=== PATIENT | female | born 1980 | race Caucasian/White ===

== ENCOUNTER 2018-05-25 08:26 | Day surgery (SDC) | payer OTHER ==
[2018-05-19 17:06] VITALS: BMI 28.4
[2018-05-25] MEDS ORDERED: PROPOFOL 20 ML ONE ×2 (09:27→09:32)
[2018-05-25] MEDS ORDERED: MIDAZOLAM HCL 2 MG/2 ML SINGLE DOSE VIAL ONE (09:27)
[2018-05-25] MEDS ORDERED: DEXAMETHASONE SOD PHOSPHATE 4 MG/1 ML VIAL ONE (09:28)
[2018-05-25] MEDS ORDERED: ONDANSETRON 4 MG/2 ML VIAL ONE (09:28)
[2018-05-25] MEDS ORDERED: ceFAZolin SODIUM 1 GM VIAL ONE (09:36)
[2018-05-25] MEDS ORDERED: DESFLURANE GAS 240 ML BOTTLE IH ONE (09:46)
[2018-05-25] MEDS ORDERED: GUM MASTIC/STORAX/MSAL/ALCOHOL 1 DRP DROPSBTL MC ONE (10:01)
[2018-05-25] MEDS ORDERED: ONDANSETRON 4 MG/2 ML VIAL IVPUSH PRN (10:08)
[2018-05-25] MEDS ORDERED: oxyCODONE HCL 5 MG TABLET PO PRN ×2 (10:08)
[2018-05-25] MEDS ORDERED: PROMETHAZINE HCL 25 MG/1 ML VIAL IVPUSH PRN (10:08)
[2018-05-25] MEDS ORDERED: BUPIVACAINE HCL/PF 0.25% (2.5MG/ML) 10 ML VIAL IJ ONE (10:28)
[2018-05-25 12:59] VITALS: TEMP 98.2
[2018-05-25 13:47] VITALS: BP 116/72; PULSE 78
--- NOTE | 2018-05-26 09:44 | OP ---
DATE OF OPERATION: 05/25/2018 PREOPERATIVE DIAGNOSIS: Left ulnar neuropathy at elbow. POSTOPERATIVE DIAGNOSIS: Left ulnar neuropathy at elbow. OPERATIVE PROCEDURE: Left ulnar nerve decompression at elbow with subcutaneous transposition. SURGEON: Miguel Fried MD [employer]ER: LILO Chiang ANESTHESIA: General. COMPLICATIONS: None. ESTIMATED BLOOD LOSS: Minimal. INDICATION FOR PROCEDURE: The patient is a 37-year-old female with the above finding, indicated for operative treatment. Risks, benefits, and alternatives were discussed with the patient at length. Proper informed consent was obtained. PROCEDURE: After proper identification of the patient and correct operative site, patient was brought to the operating room, placed supine on the OR table. All prominences were well padded. General anesthesia was given. Left upper extremity was prepped and draped in usual sterile fashion. A well-padded tourniquet was placed as well as a sterile prep. Esmarch bandage was used to exsanguinate the left upper extremity. Tourniquet was inflated to 250 mmHg. Curvilinear incision was made over the posterior medial aspect of the elbow. Incision was taken sharply through the skin, and blunt and sharp dissection through the subcutaneous tissues. Crossing neurovascular structures were carefully protected. Ulnar nerve was decompressed from the medial intermuscular septum to the insertion of the flexor carpi ulnaris split. This provided complete release of the ulnar nerve at the elbow. The ulnar nerve looked normal in appearance. However, with motion, it was clearly subluxing. Therefore, a transposition was performed by elevating the tissue over the flexor pronator wad and transposing the nerve into this area and then creating a lipofascial sling which kept the nerve anterior to the medial epicondyle. Elbow was taken through a range of motion. There was no evidence of any compression. A small section of the medial intermuscular septum had been resected previously. There was nice nerve gliding with motion, and there were no areas of further compression. Wound was irrigated with saline and repaired in layers using 4-0 Vicryl and 4-0 Monocryl suture. Steri-Strips, sterile dressings were placed. Patient was reversed from anesthesia and brought to Recovery in stable condition. She tolerated the procedure well. Asha THOMSON/[id number]
== END 2018-05-25 13:53 | disposition home or self-care (01) ==
LOC: FASU 08:26
PROVIDERS: ATTEND Orthopaedic Surgery Hand Surgery
PROC: 01N40ZZ Release Ulnar Nerve, Open Approach (ICD-10-PCS; principal; 2018-05-25 10:00)
DX: G56.22 Lesion of ulnar nerve, left upper limb (principal)
CPT/HCPCS: 84703; 94760

== ENCOUNTER 2019-05-10 09:47 | Day surgery (SDC) | payer OTHER ==
[2019-05-09 12:17] VITALS: BMI 28.9
[2019-05-10] MEDS ORDERED: BUPIVACAINE HCL/PF 0.5% (5MG/ML) 10 ML VIAL ONE (11:00)
[2019-05-10] MEDS ORDERED: MIDAZOLAM HCL 2 MG/2 ML SINGLE DOSE VIAL ONE ×2 (12:01→12:31)
[2019-05-10] MEDS ORDERED: ROPIVACAINE HCL 0.5% 30ML VIAL ONE (12:02)
[2019-05-10] MEDS ORDERED: DEXAMETHASONE SOD PHOSPHATE/PF 10 MG/ML SDV ONE (12:02)
[2019-05-10] MEDS ORDERED: PROPOFOL 20 ML ONE (12:31)
[2019-05-10] MEDS ORDERED: DEXAMETHASONE SOD PHOSPHATE 4 MG/1 ML VIAL ONE (12:31)
[2019-05-10] MEDS ORDERED: ONDANSETRON 4 MG/2 ML VIAL ONE (12:31)
[2019-05-10] MEDS ORDERED: ceFAZolin SODIUM 1 GM VIAL ONE (12:42)
[2019-05-10] MEDS ORDERED: BUPIVACAINE HCL/PF 0.5% (5MG/ML) 10 ML VIAL IJ ONE (12:55)
[2019-05-10 14:19] VITALS: TEMP 98.4
[2019-05-10] MEDS ORDERED: ONDANSETRON 4 MG/2 ML VIAL IVPUSH PRN (14:19)
[2019-05-10] MEDS ORDERED: oxyCODONE HCL 5 MG TABLET PO PRN (14:19)
[2019-05-10] MEDS ORDERED: LACTATED RINGERS SOLUTION 1,000 ML IV SCH (14:30)
[2019-05-10 15:32] VITALS: BP 118/74; PULSE 89
--- NOTE | 2019-05-10 17:13 | OP ---
DATE OF OPERATION: 05/10/2019 PREOPERATIVE DIAGNOSIS: Right comminuted intraarticular displaced distal radius fracture. POSTOPERATIVE DIAGNOSIS: Right comminuted intraarticular displaced distal radius fracture. OPERATIVE PROCEDURE: 1. Open reduction, internal fixation of right comminuted intraarticular displaced distal radius fracture with internal fixation of 3 or more fragments. 2. Right brachioradialis tenotomy. SURGEON: Racquel Siu M.D. EXTERN: Desirae Chiang ANESTHESIA: Regional. COMPLICATIONS: None. ESTIMATED BLOOD LOSS: Minimal. INDICATION FOR PROCEDURE: The patient is a 38-year-old female with the above findings, indicated for operative treatment. Risks, benefits, and alternatives were discussed with the patient at length. Proper informed consent was obtained. DESCRIPTION OF PROCEDURE: After proper identification of the patient and correct operative site, patient was brought to the operating room and placed supine on the operating room table, all bony prominences well padded. Regional anesthesia with sedation were given. Right upper extremity was prepped and draped in the usual sterile fashion. Well padded tourniquet was placed with a sterile prep. Esmarch bandage to exsanguinate the right upper extremity. Tourniquet inflated to 250 mmHg. Longitudinal incision made over the flexor carpi radialis tendon. Blunt and sharp dissection was performed through the subcutaneous tissues. Flexor carpi radialis tendon along with the contents of the carpal canal were bluntly and gently retracted in an ulnarward direction for the remainder of the procedure. Pronator quadratus was divided off the distal radius and elevated. Distal radius was found to be comminuted and displaced, and a reduction attempt was performed; however, the pole of the brachioradialis made this not possible. Therefore, brachioradialis tenotomy was performed in a subperiosteal fashion. This allowed complete reduction of the fracture, which was then held with an Acumed Acu-Loc 2 distal radius plate with distal locking screws and proximal nonlocking screws. This provided secure stable and satisfactory reduction and fixation of the fracture confirmed radiographically in multiple planes. Distal scapholunate interval was stressed, and there was no evidence of instability. Wound was irrigated and repaired in layers including pronator quadratus with 4-0 Vicryl and 4-0 Monocryl sutures. Steri-Strips, sterile dressing, and volar wrist splint were placed. The patient was reversed from anesthesia and brought to the recovery room in stable condition. She tolerated the procedure well. Ezekiel Kulkarni, the assignment desk assistant, was integral throughout the procedure. Procedure could not have been performed without a skilled operative assignment desk assistant. RACQUEL SIU M.D. HEATHER/[id number]
== END 2019-05-10 15:20 | disposition home or self-care (01) ==
LOC: FASU 09:47
PROVIDERS: ATTEND Orthopaedic Surgery Hand Surgery
PROC: 0PSH04Z Reposition Right Radius with Internal Fixation Device, Open Approach (ICD-10-PCS; principal; 2019-05-10 12:49)
DX: S52.571A Other intraarticular fracture of lower end of right radius, initial encounter for closed fracture (principal); X58.XXXA Exposure to other specified factors, initial encounter; Y93.9 Activity, unspecified; Y92.9 Unspecified place or not applicable; Y99.9 Unspecified external cause status
CPT/HCPCS: 25609; C1713; 84703